=== PATIENT | female | born 1995 | race Caucasian/White ===

== ENCOUNTER → 2022-03-22 | Outpatient (CLI) | payer BC ==
--- NOTE | 2022-03-22 15:16 | RAD ---
Three-view left foot dated 03/22/2022. No comparison available. CLINICAL INDICATION: Pain. FINDINGS: 3 views left foot show normal bony alignment. No displaced fracture. No periostitis or bone destructi on. No acute osseous or articular abnormality. IMPRESSION: No acute radiographic abnormality. Electronically signed by: Manolo Bella MD (03/22/2022 3:14 PM) AIDE
== END ==
LOC: RAD 14:00
PROVIDERS: ATTEND Physician Assistant Medical
DX: S99.922A Unspecified injury of left foot, initial encounter (principal); X58.XXXA Exposure to other specified factors, initial encounter; Y93.89 Activity, other specified; Y92.89 Other specified places as the place of occurrence of the external cause; Y99.8 Other external cause status
CPT/HCPCS: 73630